=== PATIENT | male | born 1975 | race Hispanic/Latino ===

== ENCOUNTER 2019-09-06 16:12 | Emergency (ER) | payer BC, SELFPAY ==
[2019-09-06 16:14] VITALS: BP 150/90; PULSE 74; RESP 18; TEMP 36.8; O2SAT 98; BMI 29.3
--- NOTE | 2019-09-06 17:04 | ED.DCSUM_ITS ---
- ER Visit Summary Date of Service: 09/06/19 Chief Complaint: Elevated blood pressure History of Present Illness: The patient is a 43 M significant past medical history 2 prior hernia surgeries. Patient lives in [place] normally he is in town visiting family. 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 She said she checked his blood sugar today because at one time he was prediabetic his blood sugar was 210 but he had an elevated blood pressure 165/95. He had a mild headache at that time. She rechecked it later was 195/100. He normally does not have blood pressure issues. He has no known cardiac disease. He is not having chest pain or shortness of breath. But they wanted him evaluated. He does not see a doctor regularly. Physical Examination: Middle-aged male no acute distress vital signs are stable afebrile. Current blood pressure 150/90. H EENT exam normal. Reactive light. Extra motions are intact. No facial droop. Normal speech. Neck nontender. No lymphadenopathy. Lungs clear to auscultation bilaterally. Heart regular rhythm no murmur. Abdomen soft nontender normal bowel sounds no peritoneal signs. Extremities moves all 4. Calves nontender no edema no cords. Neurologically is awake and alert. No focal motor or sensory deficits. Equal symmetrical manager music strength. Fingertip to nose and [id number] within normal limits. Dorsi plantarflexion intact. Otherwise exam completely unremarkable. Test Results: None Emergency Department Course and Treatment: Repeat blood pressure was in the room was 145/95. Discussed with the patient and his [id number]. Would not start him on any blood pressure medications at this time. His blood pressure was 133/80 before I left the room. The third and log his blood pressure twice daily and follow-up with a local primary care physician. He is here to be in town for the next 2 weeks. They know to return if worse. Treatment Plan: Log blood pressures twice daily. Follow-up with [facility]. Disposition: Discharge Impression: Elevated blood pressure rule out new onset hypertension This note was generated with [employer] software. It may contain incorrect words, spelling, and punctuation that were not noted in review of the chart prior to signing ED Disposition - Plan for ED Patient: Referrals: [facility] Doctor,Out of [Primary Care Provider] -
--- NOTE | 2019-09-06 17:07 | DCINST.ED_ITS ---
ED Disposition - Plan for ED Patient: Disposition: Home or Assisted Living Instructions: HYPERTENSION, To Be Confirmed Referrals: Russell Avalos MD [STAFF PHYSICIAN] - As soon as possible Additional Instructions: Log blood pressures twice daily in the morning and evening. Take that with you when you follow-up with [facility]. Return if feeling a lot worse and blood pressure significantly elevated of 200/100 or higher. Return if severe headaches or chest pain. Need to follow-up because if you develop an high blood pressure you will need to be started on medications.
[2019-09-06 17:22] VITALS: BP 145/100; PULSE 77; RESP 16; O2SAT 97
== END 2019-09-06 17:23 | disposition home or self-care (01) ==
LOC: ED 17:17
PROVIDERS: Emergency Provider Emergency Medicine
DX: R03.0 Elevated blood-pressure reading, without diagnosis of hypertension (principal)
CPT/HCPCS: 99282